=== PATIENT | female | born 1945 | race Caucasian/White ===

== ENCOUNTER 2018-05-20 12:17 | Outpatient (CLI) | payer MEDICARE ==
[~2018-05-20] VITALS: Ht 149.9 cm; Wt 54.5 kg
--- NOTE | ~2018-05-20 | HEMODYNAMI ---
PATIENT:KAPIL GUO MEDICAL RECORD: [id number] : 49 LOCATION:[facility] ADMISSION DATE: 05/20/18 Generatedon:05/20/201814:47 Patient name: KAPIL GUO Patient #: [id number] SSN: DO B: 1945 Date of study: 05/20/2018 Page: Of Hemodynamic Procedure Report Patient Data Patient Demographics Procedure consent was obtained First Name: KAPIL Gender: Female Last Name: BRANT : 1945 Middle Initial: FAWN Age: 72 year(s) Patient #: [id number] Race: Unknown Additional ID: [id number] Contact details Address: [facility] [address] [place] State: [place] City: [facility] Zip code: [address] Past Medical History Allergies Allergen Reaction Date Comments Reported Other allergy 05/20/2018 Sulfa Admission Admission Data Admission Date: 05/20/2018 Admission Time: 12:17 Height (in.): 20.08 BSA: 0.7 (m2) Height (cm.): 51 BMI: 223.22 (kg/m2) Weight (lbs.): 128 Weight (kg.): 58.06 Procedure Procedure Types Cath Procedure Diagnostic Procedure [facility] w/Coronaries Sedation Charges Moderate Sedation up to 15 minutes PCI Procedure Coronary Stent Coronary Stent Initial Procedure Description Procedure Date Procedure Date: 05/20/2018 Procedure Start Time: 13:47 Procedure End Time: 14:43 Procedure Staff Name Function Fredis Caceres MD Performing Physician Sangeeta Cavazos RT Monitor Ronel Shafer RN Nurse Rebecca Clayton RT Scrub Procedure Data Cath Procedure Fluoroscopy Diagnostic fluoroscopy Total fluoroscopy Time: time: 22.4 min 22.4 min Diagnostic fluoroscopy Total fluoroscopy dose: 872 dose: 872 mGy mGy Contrast Material Contrast Material Type Amount (ml) Isovue 300 158 Entry Location Entry Primary Successful Side Size Upsize Upsize Entry Closure Succes sful Closure Location (Fr) 1 (Fr) 2 (Fr) Remarks Device Remarks Femoral Right 6 Fr 6 Fr 6 Fr Exoseal artery Short Long Short Estimated blood loss: 5 ml Diagnostic catheters Device Type Used For End Catheter Placement Medtronic Dexterity 5Fr Right Coronary 3DRC catheter (NO COST Angiography SUPPLY) Procedure Complications No complications Procedure Medications Medication Administration Route Dosage Oxygen etCO2 Nasal cannula 2 l/min Lidocaine 2% added to field 20 Heparin Flush Bag added to field 2 bags (1000units/500ml NS) 0.9% NaCl I.V. 100 ml/hr Versed I.V. 1 mg Fentanyl I.V. 50 mcg Heparin Bolus I.V. 4000 units Versed I.V. 1 mg Fentanyl I.V. 50 mcg Heparin Bolus I.V. 3000 units Versed I.V. 1 mg Fentanyl I.V. 25 mcg Hemodynamics Rest BSA: 0.7 (m2) O2 Consumption: Estimated: 60.38 (ml/min) O2 Consumption indexed: Estimated:86.26 (ml/min/m) Heart Rate: 54 (bpm) Snapshots Pre Cath Intra NCS Post Cath Vital Signs Time Heart Resp SPO2 etCO2 NIBP (mmHg) Rhythm Pain Sedation Rate (ipm) (%) (mmHg) Status Level (bpm) 13:36:56 54 21 94 0 160/84(127) NSR 0 (11) 10(A) , No pain 13:41:18 58 14 99 21 127/79(99) NSR 0 (11) 10(A) , No pain 13:45:34 55 25 93 11.2 117/62(86) NSR 0 (11) 10(A) , No pain 13:49:46 52 13 93 21.8 113/61(89) NSR 0 (11) 9(A) , No pain 13:53:52 52 19 93 33.8 114/64(80) NSR 0 (11) 9(A) , No pain 13:58:02 52 13 94 30 120/65(79) NSR 0 (11) 9(A) , No pain 14:02:14 53 16 92 25.5 113/65(81) NSR 0 (11) 9(A) , No pain 14:06:22 52 18 92 30 121/69(91) NSR 0 (11) 9(A) , No pain 14:10:33 51 15 92 26.3 140/68(106) NSR 0 (11) 9(A) , No pain 14:14:49 53 23 93 27.8 127/68(99) NSR 0 (11) 9(A) , No pain 14:19:01 53 25 93 27.8 136/70(105) NSR 0 (11) 9(A) , No pain 14:23:15 54 30 94 27 144/74(98) NSR 0 (11) 9(A) , No pain 14:27:31 57 17 93 28.5 139/78(116) NSR 0 (11) 10(A) , No pain 14:31:45 56 14 93 25.5 146/79(116) NSR 0 (11) 9(A) , No pain 14:36:06 56 26 93 28.5 137/71(103) NSR 0 (11) 9(A) , No pain 14:40:22 57 17 93 27 135/73(110) NSR 0 (11) 10(A) , No pain Medications Time Medication Route Dose Verified Delivered Reason Notes Effectiveness by by 13:41:14 Oxygen etCO2 2 Fredis Buffie used for Nasal l/min St Jesus Shafer RN procedure cannula 13:41:21 Lidocaine 2% added 20ml Fredis Fredis for local to vial [facility] anesthetic field MD RESTREPO 13:41:29 Heparin Flush added 2 Fredis Fredis used for Bag to bags [facility] procedure (1000units/500ml field MD RESTREPO NS) 13:41:38 0.9% NaCl I.V. 100 Fredis Gamalie Per physician ml/hr St Jesus Shafer RN, MD 13:44:32 Versed I.V. 1 mg Fredis Buffie for sedation [facility] Jesus Shafer RN, MD 13:44:39 Fentanyl I.V. 50 Fredis Buffie for sedation mcg [facility] Jesus Shafer RN, MD 13:50:30 Heparin Bolus I.V. 4000 Fredis Buffie for verif ied units St Jesus Shafer RN anticoagulation with dr MD torres 13:57:18 Versed I.V. 1 mg Fredis Buffie for sedation St Jesus Shafer RN, MD 13:57:22 Fentanyl I.V. 50 Fredis Buffie for sedation mcg [facility] Jesus Shafer RN, MD 14:15:29 Heparin Bolus I.V. 3000 Fredis Buffie for verif ied units Morris Shafer RN anticoagulation with dr MD torres 14:25:22 Versed I.V. 1 mg Fredis Rodney for sedation St Jesus Shafer RN, MD 14:28:41 Fentanyl I.V. 25 Fredis Rodney for sedation mcg St Jesus Shafer RN, MD Procedure Log Time Note 13:23:50 Patient Height : 20.08 inches 13:23:59 Patient Weight : 128 lbs 13:24:19 Diagnostic Cath status Elective 13:24:21 Ronel Shafer RN sent for patient. Start room use. 13:24:23 Time tracking: Regular hours (M-F 7:00 - 5:00) 13:24:29 Plan of Care:Hemodynamics will remain stable., Cardiac rhythm will remain stable., Comfort level will be maintained., Respiratory function will remain adequate., Patient/ family verbilizes understanding of procedure., Procedure tolerated without complication., Recovers from procedure without complications.. 13:30:36 Patient received from Pre/Post Procedure Room to [facility] 3 Alert and oriented. Tansferred to table in Supine position. 13:30:37 Warm blankets applied, and wild hugger turned on for patient comfort. 13:30:38 Correct patient and procedure confirmed by team. 13:30:41 Signed procedure consent form obtained from patient. 13:30:42 ECG and BP/O2 sat monitors applied to patient. 13:35:47 Vital chart was started 13:35:50 Baseline sample Acquired. 13:35:54 Rhythm: sinus rhythm 13:36:02 Full Disclosure recording started 13:36:29 H&P Date Dictated: 05/14/2018 Within 30 days and on chart., H&P Addendum completed by physician on day of procedure. (MUST COMPLETE FOR ALL OUTPATIENTS). 13:36:30 Pre-procedure instructions explained to patient. 13:36:32 Family in waiting room. 13:36:34 Patient NPO since Midnight. 13:36:52 Patient allergic to Other allergySulfa 13:36:56 Was the patient premedicated? Yes 13:37:06 Is patient on blood thinner?Yes 13:41:14 Oxygen 2 l/min etCO2 Nasal cannula was administered by Ronel Shafer RN; used for procedure; 13:41:21 Lidocaine 2% 20ml vial added to field was administered by Fredis Caceres MD; for local anesthetic; 13:41:29 Heparin Flush Bag (1000units/500ml NS) 2 bags added to field was administered by Fredis Caceres MD; used for procedure; 13:41:38 0.9% NaCl 100 ml/hr I.V. was administered by Ronel Shafer RN; Per physician; 13:42:34 ACC The patient was administered the following blood thiners within the last 24 hours: ACCPlavix 13:42:45 Patient diabetic? Yes. 13:42:48 If diabetic: On Metformin? Yes 13:42:51 If on Metformin: Last Dose? 05/18/2018 13:42:55 Previous problem with sedation/anesthesia? No ? 13:42:57 Snore? Yes 13:43:00 Sleep apnea? No 13:43:01 Deviated septum? No 13:43:06 Opens mouth fully? Yes 13:43:07 Sticks out tongue? Yes 13:43:11 Airway obstruction? Yes copd 13:43:17 Dentures? Yes in tight 13:43:21 Pre procedure: right dorsailis pedis pulse 2+ Normal; easily identifiable; not easily obliterated 13:43:23 Pre procedure: left dorsailis pedis pulse 2+ Normal; easily identifiable; not easily obliterated 13:43:24 Patient pain scale 0/10 ?. 13:43:31 IV patent on arrival in left antecubital with 0.9% NaCl at [facility]. 13:43:33 Lab results completed and on chart. 13:43:37 Right groin area was prepped with chlora-prep and draped in sterile fashion 13:43:38 Alarms reviewed by R. N. 13:43:38 Sharps counted by scrub and verified by R.N. 13:43:41 Physician arrived 13:43:41 --------ALL STOP TIME OUT------ 13:43:42 Final Timeout: patient, procedure, and site verified with staff and physician. All members of the team are in agreement. 13:43:44 Right groin site verified by team. 13:43:46 Physical assessment completed. ASA score P 2 - A patient with mild systemic disease as per Fredis Caceres MD. 13:43:51 Sedation plan: IV Moderate Sedation Medication:Versed, Fentanyl 13:43:57 Use device set Femoral Dx 13:43:59 ACIST Syringe (64398) opened to sterile field. 13:43:59 Bag Decanter (2001S) opened to sterile field. 13:44:00 Medline Cath Pack ([id number]) opened to sterile field. 13:44:00 DIAGNOSTIC WIRE .035 260cm J wire (784232) opened to sterile field. 13:44:02 ACIST Hand Control (27299) opened to sterile field. 13:44:02 ACIST Manifold (26955) opened to sterile field. 13:44:04 Tegaderm 4 x 4 (1626W) opened to sterile field. 13:44:20 WHISPER 300cm guide wire ([id number]) opened to sterile field. 13:44:21 INFLATOR Merit BasixCompak (BV8782) opened to sterile field. 13:44:22 SHEATH 6FR [place] (OHX093) opened to sterile field. 13:44:32 Versed 1 mg I.V. was administered by Ronel Shafer RN; for sedation; 13:44:39 Fentanyl 50 mcg I.V. was administered by Ronel Shafer RN; for sedation; 13:46:17 Procedure started. 13:47:45 Local anesthetic to right femoral artery with Lidocaine 2% by Fredis Caceres MD.INITIAL ACCESS ONLY 13:47:54 A 6 Fr Short sheath was inserted into the Right Femoral artery 13:50:22 GUIDE 6FR JL 4.0 catheter (JE5QZ13) opened to sterile field. 13:50:30 Heparin Bolus 4000 units I.V. was administered by Ronel Shafer RN; for anticoagulation; verified with dr torres 13:51:54 A Signal Patternserity 5Fr 3DRC catheter (NO COST SUPPLY) was advanced over the wire and used for Right Coronary Angiography. 13:53:12 Baseline sample Acquired. 13:53:20 RCA angiography performed. 13:53:21 Catheter removed. 13:53:34 6 Fr jl4 guide catheter was inserted over the wire 13:55:25 GUIDE 6FR JL 5.0 catheter (XZ2NU10) opened to sterile field. 13:55:52 LCA angiography performed. 13:55:55 Injector settings: Ml/sec: 3, Volume: 6+, 13:56:02 whisper wire advanced. 13:56:43 Wire advanced across lesion. 13:57:18 Versed 1 mg I.V. was administered by Ronel Shafer RN; for sedation; 13:57:22 Fentanyl 50 mcg I.V. was administered by Ronel Shafer RN; for sedation; 14:03:12 The EMERGE OTW 2.5 x 12 balloon ([id number]) was advanced and then removed because of failure to cross lesion 14:03:16 Balloon removed over the wire. 14:03:16 Wire removed. 14:03:17 Guide catheter removed. 14:03:52 GUIDE 6FR EBU 4.0 guide catheter (MI4MUO55) opened to sterile field. 14:04:08 6 Fr ebu 4 guide catheter was inserted over the wire 14:05:20 Guide Catheter removed. unable to cannulate vessel. 14:06:31 GUIDE 6FR EBU 3.5 catheter (DQ9MSL17) opened to sterile field. 14:07:36 Guide catheter removed. 14:07:51 SHEATH 6FR Destination (RSR01) opened to sterile field. 14:09:16 Sheath upsized to a 6 Fr Long. 14:10:20 6 Fr ebu 3.5 guide catheter was inserted over the wire 14:15:29 Heparin Bolus 3000 units I.V. was administered by Ronel Shafer RN; for anticoagulation; verified with dr torres 14:16:26 Guide Catheter removed. unable to cannulate vessel. 14:16:42 GUIDE 6FR JL 3.5 guide catheter (EH9RS03) opened to sterile field. 14:16:51 6 Fr jl 3.5 guide catheter was inserted over the wire 14:20:41 Guide Catheter removed. unable to cannulate vessel. 14:21:00 6 Fr ebu 3.5 guide catheter was inserted over the wire 14:23:27 Guide Catheter removed. unable to cannulate vessel. 14:23:53 GUIDE 6FR AL 2.0 catheter (OL7CI64) opened to sterile field. 14:24:06 6 Fr al 2 guide catheter was inserted over the wire 14:25:22 Versed 1 mg I.V. was administered by Ronel Shafer RN; for sedation; 14:25:50 Guide Catheter removed. unable to cannulate vessel. 14:28:00 GUIDE 6FR Q 3.5 catheter ([id number]) opened to sterile field. 14:28:41 Fentanyl 25 mcg I.V. was administered by Ronel Shafer RN; for sedation; 14:29:33 whisper wire advanced. 14:31:59 Wire removed. 14:32:13 CHOICE PT Extra Support J 300cm guide wire ([id number]) opened to sterile field. 14:34:22 Inflate balloon Inflation number: 1 A EMERGE OTW 2.5 x 12 balloon ([id number]) was prepped and advanced across the Prox CX, then inflated to 14 BRODY for 0:30 (min:sec). 14:35:10 Inflation number: 2 The EMERGE OTW 2.5 x 12 balloon ([id number]) was reinflated across the Prox CX, to 14 BRODY for 0:30 (min:sec). 14:35:57 Balloon removed over the wire. 14:39:51 Place stent Inflation Number: 1 A ZAIDA OTW 3.0 x 18 stent ([id number]) was prepped and advanced across the Mid CX. The stent was deployed at 14 BRODY for 0:30 (min:sec). 14:41:21 Stent catheter was removed intact over wire. 14:41:22 Wire removed. 14:41:23 Guide catheter removed. 14:41:35 EXOSEAL 6Fr (EX600) opened to sterile field. 14:41:48 Sheath upsized to a 6 Fr Short. 14:42:02 Sheath removed intact; hemostasis achieved with Exoseal to the Right Femoral artery. 14:42:04 Procedure ended.(Physican Out) 14:42:16 Fluoroscopy time 22.40 minutes. 14:42:26 Flurop Dose total: 872 14:42:26 Fluoroscopy dose: 872 mGy 14:42:33 Contrast amount:Isovue 300 158ml. 14:42:35 Sharps counted by scrub and verified by R.N. 14:42:36 Insertion/operative site no bleeding no hematoma. 14:42:40 Post-op/insertion site Right Femoral artery dressed using a 4 x 4 and Tegaderm. 14:42:43 Post right femoral artery:stable 14:42:45 Post Procedure Pulses reassessed and unchanged 14:42:47 Post procedure rhythm: unchanged. 14:42:50 Estimated blood loss: 5 ml 14:42:52 Post procedure instruction explained to patient.Patient verbalizes understanding. 14:42:52 Patient needs reinforcement of post procedure teaching. 14:43:07 Procedure type changed to Cath procedure, Diagnostic procedure, LHC, LHC w/Coronaries, Sedation Charges, Moderate Sedation up to 15 minutes, PCI procedure, Coronary Stent, Coronary Stent Initial 14:43:08 Procedure and supply charges have been captured, reviewed, submitted and are correct. 14:43:12 Procedure Complication : No complications 14:43:14 Vital chart was stopped 14:43:15 See physician's report for complete and final results. 14:43:17 Report given to Pre/Post Procedure Room. 14:43:20 Patient transfered to Pre/Post Procedure Room with Stretcher. 14:43:21 Procedure ended. 14:43:21 Full Disclosure recording stopped 14:43:28 ACC-PCI Only Patient was given prescriptions, or instructed by Fredis Caceres MD to start/continue the following medications upon discharge: Plavix 14:43:30 End room use (Document Last) Intervention Summary Intervention Notes Time ActionType Lesion and Equipment Action# Pressure Duration Attributes Used 14:03:12 Discard EMERGE OTW Balloon 2.5 x 12 balloon ([id number]) 14:34:22 Inflate Prox CX EMERGE OTW 1 14 00:30 balloon 2.5 x 12 balloon ([id number]) 14:35:10 Reinflate Prox CX EMERGE OTW 2 14 00:30 balloon 2.5 x 12 balloon ([id number]) 14:39:51 Place stent Mid CX ZAIDA OTW 3.0 1 14 00:30 x 18 stent ([id number]) Device Usage Item Name Manufacture Quantity Catalog Number Hospital Part Current M inimal Lot# / Charge Number Stock Stock Serial# Code ACIST Syringe Acist 1 17629 715625 368187 555798 2 0 (12466) Medical Systems Inc Bag Decanter Microtek 1 517123 61594 744139 5 () Medical Inc. Medline Cath Medline 1 [id number] 328461 69041 929287 5 Pack ([id number]) DIAGNOSTIC [facility] [place] 1 205358 895548 812125 705758 3 0 WIRE .035 260cm J wire (240087) ACIST Hand Acist 1 95953 923210 930141 440570 5 Control Medical (92578) Systems Inc ACIST Acist 1 90778 678518 038445 091184 5 [facility] Medical (66455) Systems Inc Tegaderm 4 x 3M 1 1626W 037315 534606 481935 5 4 (1626W) WHISPER 300cm Harrington 1 [id number] 021451 059397 550844 5 guide wire Vascular (8220277IH) INFLATOR Bio-Tree Systems 1 AK2030 680926 021772 195605 1 5 Sandbox BasixCompak (RY6009) SHEATH 6FR Terumo 1 ZDB566 925141 615051 170455 4 0 [place] (TJB748) GUIDE 6FR JL Medtronic 1 SH9WG69 009196 21788 759502 1 4.0 catheter (DC4ZE33) Medtronic Medtronic 1 GAE73STQ 490525 300311 5 Dexterity 5Fr 3DRC catheter (NO COST SUPPLY) GUIDE 6FR JL Medtronic 1 CO5XN49 160230 82359 962227 1 5.0 catheter (PY2TW08) EMERGE OTW [place] 1 [id number] 855190 316543 718210 5 [id number] 2.5 x 12 Scientific balloon ([id number]) GUIDE 6FR EBU Medtronic 1 ZT1MHB79 957625 57532 816236 1 4.0 guide catheter (DY0TAF17) GUIDE 6FR EBU Medtronic 1 QX7ICQ25 237094 34404 132265 3 3.5 catheter (YM9YEL61) SHEATH 6FR Terumo 1 RSR01 474160 81305 607226 5 Destination (RSR01) GUIDE 6FR JL Medtronic 1 CG8LN44 066919 29036 870013 1 3.5 guide catheter (IZ7RP86) GUIDE 6FR AL Medtronic 1 AW8QD66 904079 76577 276700 1 2.0 catheter (BR3BA06) GUIDE 6FR Q [place] 1 [id number] 286963 797896 4312152 1 3.5 catheter Scientific (598949830) CHOICE PT [place] 1 [id number] 351177 035015 040058 5 Extra Support Scientific J 300cm guide wire (3553638O1) ZAIDA OTW 3.0 Medtronic 1 [id number] 408441 2987853 503691 5 [id number] x 18 stent ([id number]) EXOSEAL 6Fr Cardinal 1 EX600 282201 567755 180125 1 0 (EX600) Health Signature Audit Allen Stage Time Signature Unsigned Intra-Procedure 05/20/2018 Sangeeta Cavazos 2:47:41 PM RT(R) Signatures Monitor : Sangeeta Cavazos RT Signature : Date : Time : [place] [id number] [place] [address]
--- NOTE | ~2018-05-20 | OP ---
PATIENT NAME: KAPIL GUO MEDICAL RECORD: [id number] :49 LOCATION:D.CAT ADMISSION DATE: SURGEON: RUSSELL SCANLON MD DATE OF OPERATION: 05/20/2018 PROCEDURE: Left heart catheterization and selective coronary angiography, stent to circumflex, right femoral artery approach. CATHETERS: A 5-Libyan sheath, no pigtail. The procedure was well tolerated. The patient was returned to díaz. Sheath was removed and then Exoseal device was placed. Left ventriculography was not performed. CORONARY ANATOMY: LEFT MAIN: Left main is free of disease. LAD: LAD is free of disease. CIRCUMFLEX: Circumflex has previously described 80% to 90% stenosis in its midportion. RIGHT CORONARY: Previously placed stents show perhaps 30% restenosis, nothing flow restrictive. IMPRESSION AND PLAN: Intervention to circumflex momentarily. DESCRIPTION OF PROCEDURE: The 5-Libyan sheath was eventually changed for a long 6-Libyan sheath due to tortuosity of descending aorta and iliac system. We were finally able to place a Q-catheter into the left coronary ostium. This was followed by 300-cm Whisper wire which was placed across the tightly occluded circumflex down this portion of the vessel. We were able to place a 2.0 balloon distal to this stenosis itself, using the balloon as the exchange catheter, placed a PT extra support wire. Next, the balloon was inflated up to 14 atmospheres for pre-deployment. Finally, we were able to place a 3.0 x 18-mm Ulysses drug-eluting stent up to 14 atmospheres. This showed excellent resolution of 90% stenosis, no significant residual. MIRTA flow was 3 throughout the procedure. The patient was previously on Plavix. Heparin was used in the lab. Sheath was closed with Exoseal device. TRANSINT:[id number] Voice Confirmation ID: [id number] DOCUMENT ID: [id number] RUSSELL SCANLON MD at 1418 CC: [id number] DICTATION DATE: 05/20/18 1458 MEDICAL RECORD TECHNICIAN: 05/20/18 1654 DEP CLI 05/20/18 [place] [address]
[~2018-05-20 12:17] MED LIST: KEFLEX500 MG PO; LIDOCAINE 2% SM; METOPROLOL TART50 MG PO; MOTRIN600 MG PO; MULTI-DAY VITAM1 TAB PO; NICODERM C1 PATCH .1; NICODERM C1 PATCH .1 TD; NORVASC5 MG PO; PERCOCET 10/3251 TA1 PO; PHENERGAN25 M1 PO; PRAVACHOL40 MG PO; PRILOSEC20 MG PO; PRINZIDE 20/12.1 TAB PO; PROAIR HFA8.5 GM INH; PROTEIN LIQUID; PROVENTIL/2.5 MG/3 M INH; PROZAC20 MG PO; TOPROL XL50 MG PO; [UNRECOGNIZED DRUG - OTHER] SM
[2018-05-20] MEDS ORDERED: GLUCOPHAGE850 MG PO (12:37)
[2018-05-20] MEDS ORDERED: BAYER CHEWABLE81 MG PO (12:38)
[2018-05-20] MEDS ORDERED: BUSPAR5 MG PO (12:38)
[2018-05-20] MEDS ORDERED: PLAVIX75 MG PO (12:39)
[2018-05-20] MEDS ORDERED: LEXAPRO10 MG PO (12:39)
[2018-05-20] MEDS ORDERED: FEXOFENADINE H180 MG PO (12:40)
[2018-05-20] MEDS ORDERED: HYDRALAZINE HCL25 MG PO (12:40)
[2018-05-20 13:07] VITALS: BP 151/67; Ht 149.9 cm; Wt 54.5 kg
[2018-05-20 13:07] LABS: BASOPHILS 1.7 % (0-2); EOSINOPHILS 2.7 % (0-7); HEMATOCRIT 41.4 % (36.0-48.0); HEMOGLOBIN 13.8 g/dL (12-16); IMMATURE GRANULOCYTES 0.4 % (0-5); LYMPHOCYTES 26.1 % (15-50); MCH 30.3 pg (26.0-34.0); MCHC 33.3 g/dL (31.0-37.0); MEAN PLATELET VOLUME 9.6 fL (7.4-10.4); MONOCYTES 7.3 % (2-11); NEUTROPHILS 61.8 % (40-80); PLATELET COUNT 397 10x3/uL (130-400); RBC 4.55 10x6/uL (4.00-5.40); RDW 13.6 % (11.5-14.5); WBC 8.3 10x3/uL (4.8-10.8)
[2018-05-20 13:16] LABS: ANION GAP 15.5 mmol/L (8-16); CALCIUM 9.4 mg/dL (8.5-10.1); CARBON DIOXIDE 25.1 mmol/L (21.0-32.0); CREATININE - SERUM 1.1 mg/dL (0.6-1.3); POTASSIUM - SERUM 4.6 mmol/L (3.5-5.1)
== END 2018-05-20 19:15 | disposition home or self-care (01) ==
LOC: D.CATH 12:17
PROVIDERS: Internal Medicine Interventional Cardiology
DX: I25.110 Atherosclerotic heart disease of native coronary artery with unstable angina pectoris (principal)
CPT/HCPCS: C9600; 93458

== ENCOUNTER 2018-06-14 18:19 | Emergency (ER) | payer MEDICARE ==
[~2018-06-14] VITALS: Ht 149.9 cm; Wt 55.5 kg
[~2018-06-14 18:19] MED LIST changes: +BAYER CHEWABLE81 MG PO; +BUSPAR5 MG PO; +FEXOFENADINE H180 MG PO; +GLUCOPHAGE850 MG PO; +HYDRALAZINE HCL25 MG PO; +LEXAPRO10 MG PO; +PLAVIX75 MG PO
[2018-06-14 18:23] VITALS: Ht 149.9 cm; Wt 55.5 kg
[2018-06-14] MEDS ORDERED: ULTRAM50 MG PO (18:26)
[2018-06-14] MEDS ORDERED: HYDROCODON-ACE1 EAC7 PO (18:26)
[2018-06-14] MEDS ORDERED: PEPCID AC20 MG PO (18:26)
[2018-06-14 19:02] LABS: APPEARANCE CLEAR (CLEAR); BILIRUBIN NEGATIVE (NEGATIVE); COLOR YELLOW (YELLOW); EPITHELIAL CELLS 0-5 /hpf (0-5); GLUCOSE NEGATIVE (NEGATIVE); KETONE NEGATIVE (NEGATIVE); NITRITE NEGATIVE (NEGATIVE); PROTEIN 3+ mg/dL (NEGATIVE); RED CELLS - URINE RARE /hpf (0-5); UROBILINOGEN NORMAL (NORMAL); WHITE CELLS - URINE NSEEN /hpf (0-5)
[2018-06-14 19:04] LABS: BASOPHILS 0.7 % (0-2); EOSINOPHILS 5.8 % (0-7); HEMATOCRIT 34.4 % (36.0-48.0); HEMOGLOBIN 11.2 g/dL (12-16); IMMATURE GRANULOCYTES 0.2 % (0-5); LYMPHOCYTES 15.5 % (15-50); MCH 29.4 pg (26.0-34.0); MCHC 32.6 g/dL (31.0-37.0); MCV 90.3 fL (80.0-100.0); MEAN PLATELET VOLUME 9.6 fL (7.4-10.4); MONOCYTES 9.8 % (2-11); PLATELET COUNT 419 10x3/uL (130-400); RBC 3.81 10x6/uL (4.00-5.40); RDW 13.6 % (11.5-14.5); WBC 12.3 10x3/uL (4.8-10.8)
[2018-06-14 19:10] LABS: ANION GAP 14.2 mmol/L (8-16); BILIRUBIN - TOTAL 0.16 mg/dL (0.2-1.3); CALCIUM 8.8 mg/dL (8.5-10.1); CARBON DIOXIDE 24.7 mmol/L (21.0-32.0); CREATININE - SERUM 1.8 mg/dL (0.6-1.3); POTASSIUM - SERUM 3.9 mmol/L (3.5-5.1); PROTEIN - SERUM 7.6 g/dL (6.4-8.2)
[2018-06-14 19:12] LABS: TROPONIN-I 0.038 ng/mL (0.000-0.060)
[2018-06-14] MEDS ORDERED: CARAFATE1 G PO (20:55)
[2018-06-14] MEDS ORDERED: MIRALAX17 GM PO (20:59)
[2018-06-14 21:11] VITALS: BP 143/74
== END 2018-06-14 21:10 | disposition home or self-care (01) ==
LOC: D.ER 18:19
PROVIDERS: Emergency Medicine
DX: K21.9 Gastro-esophageal reflux disease without esophagitis (principal); I71.4 Abdominal aortic aneurysm, without rupture; K59.00 Constipation, unspecified; Z86.39 Personal history of other endocrine, nutritional and metabolic disease; Z86.73 Personal history of transient ischemic attack (TIA), and cerebral infarction without residual deficits; E11.9 Type 2 diabetes mellitus without complications; I10 Essential (primary) hypertension; J44.9 Chronic obstructive pulmonary disease, unspecified; F17.200 Nicotine dependence, unspecified, uncomplicated

== ENCOUNTER 2018-06-18 19:41 | Observation (INO) | payer MEDICARE ==
[~2018-06-18] VITALS: Ht 149.9 cm; Wt 56.1 kg
--- NOTE | ~2018-06-18 | HEMODYNAMI ---
PATIENT:KAPIL GUO MEDICAL RECORD: [id number] : 49 LOCATION:[facility]04 ADMISSION DATE: 06/18/18 Generatedon:06/19/201816:40 Patient name: KAPIL GUO Patient #: [id number] SSN: DO B: 1945 Date of study: 06/19/2018 Page: Of Hemodynamic Procedure Report Patient Data Patient Demographics Procedure consent was obtained First Name: KAPIL Gender: Female Last Name: BRANT : 1945 [facility] Initial: FAWN Age: 72 year(s) Patient #: [id number] Race: Unknown Additional ID: [id number] Contact details Address: [address] State: [place] Zip code: [address] Past Medical History Allergies Allergen Reaction Date Comments Reported Other allergy 05/20/2018 Sulfa Admission Admission Data Admission Date: 06/18/2018 Admission Time: 22:10 Admit Source: Other Room #: D.CL04 Procedure Procedure Types Cath Procedure Diagnostic Procedure C [facility] w/Coronaries Sedation Charges Moderate Sedation up to 15 minutes Procedure Description Procedure Date Procedure Date: 06/19/2018 Procedure Start Time: 16:01 Procedure End Time: 16:40 Procedure Staff Name Function Fredis Caceres MD Performing Physician Kirstin Aggarwal RT Scrub Carolina Friedman RN Nurse Guilherme Wills RN Mathematics Education Professor Tereza Starkey RT Monitor Procedure Data Cath Procedure Fluoroscopy Diagnostic fluoroscopy Total fluoroscopy Time: 8.2 time: 8.2 min min Diagnostic fluoroscopy Total fluoroscopy dose: 639 dose: 639 mGy mGy Contrast Material Contrast Material Type Amount (ml) Isovue 300 84 Entry Location Entry Primary Successful Side Size Upsize Upsize Entry Closure Succes sful Closure Location (Fr) 1 (Fr) 2 (Fr) Remarks Device Remarks Femoral Right 5 Fr Exoseal artery Estimated blood loss: 10 ml Diagnostic catheters Device Type Used For End Catheter Placement MULTIPACK JL 4.0 5Fr Left Coronary catheter Angiography MULTIPACK Pigtail 5 Fr Procedure catheter MULTIPACK 3DRC 5Fr Right Coronary catheter Angiography DIAGNOSTIC IM 5Fr Procedure catheter ([id number]) MULTIPACK Pigtail 5 Fr Ascending catheter aortogram MULTIPACK 3DRC 5Fr Right Coronary catheter Angiography Procedure Complications No complications Procedure Medications Medication Administration Route Dosage 0.9% NaCl I.V. 100 ml/hr Oxygen etCO2 Nasal cannula 2 l/min Lidocaine 2% added to field 20 Heparin Flush Bag added to field 2 bags (1000units/500ml NS) Plavix P.O. 300 mg Versed I.V. 2 mg Fentanyl I.V. 50 mcg Fentanyl I.V. 50 mcg Hemodynamics Rest Heart Rate: 64 (bpm) Snapshots Pre Cath Intra NCS Post Cath Vital Signs Time Heart Resp SPO2 etCO2 NIBP (mmHg) Rhythm Pain Sedation Rate (ipm) (%) (mmHg) Status Level (bpm) 15:51:48 72 16 98 33.5 178/93(149) NSR 0 (11) 10(A) , No pain 15:56:06 76 14 96 26 154/84(112) NSR 0 (11) 10(A) , No pain 16:00:22 77 12 95 28.2 148/89(118) NSR 0 (11) 10(A) , No pain 16:04:38 76 10 96 23.1 148/82(130) NSR 0 (11) 9(A) , No pain 16:08:54 80 12 98 29 135/79(113) NSR 0 (11) 9(A) , No pain 16:13:06 81 12 97 26 149/77(116) NSR 0 (11) 9(A) , No pain 16:17:18 81 13 95 28.3 157/90(131) NSR 0 (11) 9(A) , No pain 16:21:28 82 12 95 30.5 158/91(130) NSR 0 (11) 9(A) , No pain 16:25:40 81 12 95 30.5 163/86(132) NSR 0 (11) 10(A) , No pain 16:29:39 80 13 95 20.1 167/100(140) NSR 0 (11) 10(A) , No pain 16:33:57 80 14 94 34.2 181/101(142) NSR 0 (11) 10(A) , No pain 16:38:19 80 13 93 20.1 187/106(160) NSR 0 (11) 10(A) , No pain Medications Time Medication Route Dose Verified Delivered Reason Notes E ffectiveness by by 15:35:53 0.9% NaCl I.V. 100 Fredis Carolina used for ml/hr [facility] Friedman procedure MD SONG 15:36:00 Oxygen etCO2 2 Fredis Carolina used for Nasal l/min Morris Elder procedure cannula MD SONG 15:36:05 Lidocaine 2% added 20ml Fredis Mcneal for local to vial [facility] anesthetic field MD RESTREPO 15:36:09 Heparin Flush added 2 Fredis Fredis used for Bag to bags [facility] procedure (1000units/500ml field MD RESTREPO NS) 15:53:54 Plavix P.O. 300 Fredis Figueroa for mg [facility] Friedman antiplatelet MD SONG therapy 15:56:38 Versed I.V. 2 mg Fredis Helmyla for sedation [facility] Jesus Friedman MD, RN 15:56:45 Fentanyl I.V. 50 Fredis Carolina for sedation mcg [facility] Jesus Friedman MD, RN 16:01:34 Fentanyl I.V. 50 Fredis Helmyla for sedation mcg [facility] Jesus Friedman MD, RN Procedure Log Time Note 15:33:14 Informed consent obtained and on chart 15:33:17 Admit Source: Other 15:33:41 Diagnostic Cath status Elective 15:33:44 Guilherme Wills RN sent for patient. Start room use. 15:35:06 Time tracking: Regular hours (M-F 7:00 - 5:00) 15:35:09 Plan of Care:Hemodynamics will remain stable., Cardiac rhythm will remain stable., Comfort level will be maintained., Respiratory function will remain adequate., Patient/ family verbilizes understanding of procedure., Procedure tolerated without complication., Recovers from procedure without complications.. 15:35:16 H&P Date Dictated: 06/19/2018 Within 30 days and on chart.. 15:35:53 0.9% NaCl 100 ml/hr I.V. was administered by Carolina Friedman RN; used for procedure; 15:36:00 Oxygen 2 l/min etCO2 Nasal cannula was administered by Carolina Friedman RN; used for procedure; 15:36:05 Lidocaine 2% 20ml vial added to field was administered by Fredis Caceres MD; for local anesthetic; 15:36:09 Heparin Flush Bag (1000units/500ml NS) 2 bags added to field was administered by Fredis Caceres MD; used for procedure; 15:45:52 Patient received from ED to CCL 1 Alert and oriented. Tansferred to table in Supine position. 15:45:53 Warm blankets applied, and wild hugger turned on for patient comfort. 15:45:53 Correct patient and procedure confirmed by team. 15:45:54 ECG and BP/O2 sat monitors applied to patient. 15:45:55 Pre-procedure instructions explained to patient. 15:45:56 Pre-op teaching completed and patient verbalized understanding. 15:45:57 Family in waiting room. 15:45:58 Patient NPO since Midnight. 15:50:36 Vital chart was started 15:50:40 Rhythm: sinus rhythm 15:50:41 Full Disclosure recording started 15:51:27 Is the patient allergic to Iodine/contrast media? No. 15:51:30 Is patient on blood thinner?Yes 15:51:32 ACC The patient was administered the following blood thiners within the last 24 hours: ACCPlavix 15:51:36 Patient diabetic? Yes. 15:51:37 If diabetic: On Metformin? Yes 15:51:38 If on Metformin: Last Dose? 06/18/2018 15:51:41 Previous problem with sedation/anesthesia? No ? 15:51:42 Snore? Yes 15:51:44 Sleep apnea? No 15:51:45 Deviated septum? No 15:51:45 Opens mouth fully? Yes 15:51:46 Sticks out tongue? Yes 15:51:49 Airway obstruction? No ? 15:51:53 Dentures? No ? 15:51:57 Pre procedure: right dorsailis pedis pulse 1+ Palpable, but thready & weak; easily obliterated 15:52:29 Unable to go radial due to pt's height. 15:52:34 Patient pain scale 0/10 ?. 15:52:40 IV patent on arrival in left forearm with 0.9% NaCl at O. 15:52:43 Lab results completed and on chart. 15:52:46 Right groin area was prepped with chlora-prep and draped in sterile fashion 15:52:47 Alarms reviewed by R. N. 15:52:47 Sharps counted by scrub and verified by R.N. 15:52:55 Use device set Femoral Dx 15:52:56 Tegaderm 4 x 4 (1626W) opened to sterile field. 15:52:57 ACIST Hand Control (77082) opened to sterile field. 15:52:57 ACIST Manifold (72456) opened to sterile field. 15:52:59 ACIST Syringe (08247) opened to sterile field. 15:52:59 Bag Decanter (2002S) opened to sterile field. 15:53:00 Medline Cath Pack ([id number]) opened to sterile field. 15:53:02 DIAGNOSTIC WIRE .035 260cm J wire (166128) opened to sterile field. 15:53:03 DIAGNOSTIC Multipack 5Fr catheter set (XY3751) opened to sterile field. 15:53:06 SHEATH 5FR [place] (NZP499) opened to sterile field. 15:53:54 Plavix 300 mg P.O. was administered by Carolina Friedman RN; for antiplatelet therapy; 15:55:55 --------ALL STOP TIME OUT------ 15:55:55 Final Timeout: patient, procedure, and site verified with staff and physician. All members of the team are in agreement. 15:55:58 Right groin site verified by team. 15:56:00 Physical assessment completed. ASA score P 2 - A patient with mild systemic disease as per Fredis Caceres MD. 15:56:04 Sedation plan: IV Moderate Sedation Medication:Versed, Fentanyl 15:56:38 Versed 2 mg I.V. was administered by Carolina Friedman RN; for sedation; 15:56:45 Fentanyl 50 mcg I.V. was administered by Carolina Friedman RN; for sedation; 15:57:09 Baseline sample Acquired. 15:57:22 Zero performed for pressure channel P1 16:01:34 Fentanyl 50 mcg I.V. was administered by Carolina Friedman RN; for sedation; 16:01:46 Zero performed for pressure channel P1 16:01:50 Procedure started. 16:01:56 Local anesthetic to right femoral artery with Lidocaine 2% by Fredis Caceres MD.INITIAL ACCESS ONLY 16:02:28 A 5 Fr sheath was inserted into the Right Femoral artery 16:02:56 A MULTIPACK JL 4.0 5Fr catheter was advanced over the wire and used for Left Coronary Angiography. 16:04:40 Catheter removed. 16:06:56 A MULTIPACK Pigtail 5 Fr catheter was advanced over the wire and used for Procedure. for Thoracic aortagram 16:12:35 Catheter removed. 16:14:49 A MULTIPACK Pigtail 5 Fr catheter was advanced over the wire and used for Right Coronary Angiography. removed, unable to advance 16:15:02 glide wire advanced. 16:17:20 A DIAGNOSTIC IM 5Fr catheter ([id number]) was advanced over the wire and used for Procedure. 16:18:02 A MULTIPACK Pigtail 5 Fr catheter was advanced over the wire and used for Ascending aortogram. 16:22:53 Catheter removed. 16:24:34 A MULTIPACK 3DRC 5Fr catheter was advanced over the wire and used for Right Coronary Angiography. 16:25:26 Catheter removed. 16:25:48 Sheath removed intact; hemostasis achieved with Exoseal to the Right Femoral artery. 16:25:49 Procedure ended.(Physican Out) 16::58 Fluoroscopy time 08.20 minutes. 16:26:02 Flurop Dose total: 639 16:26:02 Fluoroscopy dose: 639 mGy 16:26:05 Contrast amount:Isovue 300 84ml. 16:26:06 Sharps counted by scrub and verified by R.N. 16:26:08 Insertion/operative site no bleeding no hematoma. 16:26:20 Post right femoral artery:stable, clean and dry 16:26:24 Post-op/insertion site Right Femoral artery dressed using a 4 x 4 and Tegaderm. 16:26:28 Post Procedure Pulses reassessed and unchanged 16:26:32 Post-procedure physical assessment completed. ASA score P 2 - A patient with mild systemic disease as per Fredis Caceres MD. 16:26:34 Post procedure rhythm: unchanged. 16:26:36 Estimated blood loss: 10 ml 16:26:37 Post procedure instruction explained to patient.Patient verbalizes understanding. 16:26:38 Patient needs reinforcement of post procedure teaching. 16:26:58 Procedure type changed to Cath procedure, Diagnostic procedure, LHC, LHC w/Coronaries, Sedation Charges, Moderate Sedation up to 15 minutes 16:27:03 Procedure Complication : No complications 16:27:06 See physician's report for complete and final results. 16:27:14 EXOSEAL 5Fr (EX500) opened to sterile field. 16:28:18 Procedure and supply charges have been captured, reviewed, submitted and are correct. 16:28:37 Vital chart was started 16:40:00 Report given to [facility]. 16:40:04 Patient transfered to [facility] with Bed. 16:40:10 Procedure ended. 16:40:10 Full Disclosure recording stopped 16:40:13 End room use (Document Last) 16:40:13 End room use (Document Last) 16:40:44 Vital chart was stopped Device Usage Item Name Manufacture Quantity Catalog Hospital Part Current Minimal L ot# / Number Charge Number Stock Stock Serial# Code Tegaderm 4 3M 1 1626W 196371 905392 321548 5 x 4 (1626W) ACIST Hand Acist 1 93277 188400 438295 271324 5 Control Medical (01775) Systems Inc ACIST Acist 1 63071 294461 534704 382878 5 Manifold Medical (36741) Systems Inc ACIST Acist 1 01833 524253 814375 587240 20 Syringe Medical (34684) Systems Inc Bag Microtek 1 2001S 016169 47733 192549 5 Decanter Medical Inc. () Medline Medline 1 [id number] 855529 21056 174857 5 Cath Pack ([id number]) DIAGNOSTIC St Hen[facility] 1 818578 318470 020441 323373 30 WIRE .035 260cm J wire (616043) DIAGNOSTIC Cardinal 1 KJ6875 400429 62160 777878 30 Multipack Health 5Fr catheter set (NU0078) SHEATH 5FR Terumo 1 HLX313 003057 507186 863188 40 [place] (LHA982) MULTIPACK Cardinal 1 712246 5 JL 4.0 5Fr Health catheter MULTIPACK Cardinal 2 184236 5 Pigtail 5 Health Fr catheter MULTIPACK Cardinal 2 696593 5 3DRC 5Fr Health catheter DIAGNOSTIC Cardinal 1 [id number] 737212 439402 031767 5 IM 5Fr Health catheter (341631U) EXOSEAL 5Fr Cardinal 1 EX500 727912 068339 129809 10 (EX500) Health Signature Audit [place] Time Signature Unsigned Intra-Procedure 06/19/2018 Kirstin Aggarwal 4:40:42 PM RT(R) Signatures Monitor : Tereza Signature : Counts RT Date : Time : [address] [place] [address]
--- NOTE | ~2018-06-18 | MORECARE ---
CASE MANAGEMENT DISCHARGE SUMMARY PATIENT: KAPIL GUO UNIT: [id number] ADM DATE: 06/18/18 AGE: 72 : [birth year] SEX: F ROOM/BED: D.2116 AUTHOR: JOSEFINA MONTALVO PHYSICIAN: REFERRING PHYSICIAN: RUSSELL SCANLON MD DATE OF SERVICE: 06/21/18 Discharge Plan Patient Name: KAPIL GUO Facility: [facility]:[place] : 1945 Planned Disposition: Home Anticipated Discharge Date: 06/20/18 Discharge Date: 06/20/2018 Expected LOS: 2 Initial Reviewer: [email or web address] Initial Review Date: 06/21/2018 Generated: 06/21/18 9:33 am Patient Name: KAPIL GUO Page [id number] at 0833 All edits/amendments must be made on the electronic document DICTATION DATE: 06/21/18 08 HELP DESK REP: MARY ELLEN 06/21/18 08 RPT#: [id number] DC DATE:06/20/18 STATUS: DIS IN [facility] [address] [place] [address] END OF REPORT
--- NOTE | ~2018-06-18 | OP ---
PATIENT NAME: KAPIL GUO MEDICAL RECORD: [id number] :[birth year] LOCATION:D.M2 D.2116 ADMISSION DATE:06/18/18 SURGEON: RUSSELL SCANLON MD DATE OF OPERATION: 06/19/2018 PROCEDURE: Left heart catheterization, selective coronary angiography, right femoral artery approach. CATHETERS: A 5-Malay sheath, 5/4 left and right Lolita, 5/4 pig. The procedure was well tolerated. The patient was put in observation after the procedure was finished. FINDINGS: Left ventriculography not performed. CORONARY ANATOMY: LEFT MAIN: Left main is free of disease. LAD: Free of diagnosis in diagonal system. CIRCUMFLEX: Area of previous stenting is widely patent. No progression of disease. RIGHT CORONARY ARTERY: Previously placed stents are widely patent. There is some distal disease in the PDA of about 70%. No evidence of restenosis. However, multiple views were taken with aortic root injection. This shows a large thoracic aneurysm, a significant stenosis of the right innominate and some deviation of the trachea. IMPRESSION: We will plan for CTA to further delineate anatomy. This will need to be repaired at some point. Further recommendations based on the above. TRANSINT:[id number] Voice Confirmation ID: [id number] DOCUMENT ID: [id number] 06/25/2018 Edited to correct date of service, dmm. RUSSELL SCANLON MD at 1310 CC: [id number] DICTATION DATE: 06/19/18 1643 SPLUNK ARCHITECT: 06/19/18 2335 DIS IN 06/20/18 [address] [place] [address]
[~2018-06-18 19:41] MED LIST changes: +CARAFATE1 G PO; +HYDROCODON-ACE1 EAC7 PO; +MIRALAX17 GM PO; +PEPCID AC20 MG PO; +ULTRAM50 MG PO
[2018-06-18 21:00] VITALS: BP 128/96
[2018-06-18 21:03] LABS: BASOPHILS 0.7 % (0-2); EOSINOPHILS 9.7 % (0-7); HEMATOCRIT 30.8 % (36.0-48.0); HEMOGLOBIN 10.2 g/dL (12-16); IMMATURE GRANULOCYTES 0.2 % (0-5); MCH 29.1 pg (26.0-34.0); MCHC 33.1 g/dL (31.0-37.0); MCV 87.7 fL (80.0-100.0); MEAN PLATELET VOLUME 9.3 fL (7.4-10.4); MONOCYTES 8.4 % (2-11); PLATELET COUNT 488 10x3/uL (130-400); RBC 3.51 10x6/uL (4.00-5.40); RDW 13.3 % (11.5-14.5); WBC 8.4 10x3/uL (4.8-10.8)
[2018-06-18 21:22] LABS: INR 1.07 (0.85-1.17); PROTIME 13.4 SECONDS (11.6-15.0)
[2018-06-18 21:23] LABS: APTT 44.4 SECONDS (22.8-39.4)
[2018-06-18 21:29] LABS: ALBUMIN 3.1 g/dL (3.4-5.0); ALKALINE PHOSPHATASE 127 U/L (46-116); ALT (SGPT) 26 U/L (10-68); BILIRUBIN - TOTAL 0.25 mg/dL (0.2-1.3); CALC OSMOLALITY 272 mosm/kg (275-300); CALCIUM 9.2 mg/dL (8.5-10.1); CARBON DIOXIDE 23.8 mmol/L (21.0-32.0); CHLORIDE - SERUM 99 mmol/L (98-107); GLUCOSE 90 mg/dL (74-106); POTASSIUM - SERUM 3.3 mmol/L (3.5-5.1); PROTEIN - SERUM 7.8 g/dL (6.4-8.2); SODIUM 134 mmol/L (136-145); UREA NITROGEN 26 mg/dL (7-18); eGFR NON AFRICAN AMERICAN 26 mL/min (90-120)
[2018-06-18 21:46] LABS: CKMB 1.9 U/L (0.0-3.6); CREATINE KINASE 52 UL (21-215); MAGNESIUM - SERUM 1.7 mg/dL (1.8-2.4)
[2018-06-18 21:48] LABS: TROPONIN-I 0.084 ng/mL (0.000-0.060)
[2018-06-18 22:00] VITALS: BP 140/100
[2018-06-19] VITALS (16 sets, daily range): BP systolic 127–180; BP diastolic 66–112; Ht 149.9 cm; Wt 56.1 kg
[2018-06-19 02:51] LABS: EOSINOPHILS 9.1 % (0-7); HEMATOCRIT 31.6 % (36.0-48.0); HEMOGLOBIN 10.5 g/dL (12-16); IMMATURE GRANULOCYTES 0.3 % (0-5); LYMPHOCYTES 22.8 % (15-50); MCH 29.5 pg (26.0-34.0); MCHC 33.2 g/dL (31.0-37.0); MCV 88.8 fL (80.0-100.0); MEAN PLATELET VOLUME 9.1 fL (7.4-10.4); MONOCYTES 10.8 % (2-11); PLATELET COUNT 430 10x3/uL (130-400); RBC 3.56 10x6/uL (4.00-5.40); RDW 13.3 % (11.5-14.5); WBC 7.7 10x3/uL (4.8-10.8)
[2018-06-19 03:23] LABS: BILIRUBIN - TOTAL 0.24 mg/dL (0.2-1.3); CALCIUM 9.1 mg/dL (8.5-10.1); CARBON DIOXIDE 24.7 mmol/L (21.0-32.0); CREATININE - SERUM 1.8 mg/dL (0.6-1.3); POTASSIUM - SERUM 3.7 mmol/L (3.5-5.1); PROTEIN - SERUM 7.6 g/dL (6.4-8.2); TROPONIN-I 0.104 ng/mL (0.000-0.060)
[2018-06-19 09:50] LABS: BASOPHILS 0.7 % (0-2); EOSINOPHILS 7.6 % (0-7); HEMATOCRIT 33.4 % (36.0-48.0); HEMOGLOBIN 10.8 g/dL (12-16); IMMATURE GRANULOCYTES 0.1 % (0-5); LYMPHOCYTES 14.9 % (15-50); MCH 29.3 pg (26.0-34.0); MCHC 32.3 g/dL (31.0-37.0); MCV 90.5 fL (80.0-100.0); MEAN PLATELET VOLUME 9.5 fL (7.4-10.4); MONOCYTES 7.7 % (2-11); PLATELET COUNT 463 10x3/uL (130-400); RBC 3.69 10x6/uL (4.00-5.40); RDW 13.6 % (11.5-14.5); WBC 7.1 10x3/uL (4.8-10.8)
[2018-06-19 09:55] LABS: CKMB 1.4 U/L (0.0-3.6); CREATINE KINASE 38 UL (21-215)
[2018-06-19 09:58] LABS: TROPONIN-I 0.097 ng/mL (0.000-0.060)
[2018-06-19 10:02] LABS: ANION GAP 15.3 mmol/L (8-16); CALCIUM 9.5 mg/dL (8.5-10.1); CARBON DIOXIDE 25.2 mmol/L (21.0-32.0); CREATININE - SERUM 1.9 mg/dL (0.6-1.3); POTASSIUM - SERUM 3.5 mmol/L (3.5-5.1)
[2018-06-19 16:11] LABS: CKMB 1.5 U/L (0.0-3.6); CREATINE KINASE 37 UL (21-215)
[2018-06-19 16:23] LABS: TROPONIN-I 0.175 ng/mL (0.000-0.060)
[2018-06-20] VITALS: BP 129/83
[2018-06-20 04:00] VITALS: BP 134/80
[2018-06-20 08:02] VITALS: BP 144/97
[2018-06-20 09:32] LABS: ANION GAP 14.7 mmol/L (8-16); CALCIUM 8.6 mg/dL (8.5-10.1); CARBON DIOXIDE 24.6 mmol/L (21.0-32.0); CREATININE - SERUM 1.7 mg/dL (0.6-1.3); POTASSIUM - SERUM 3.3 mmol/L (3.5-5.1)
[2018-06-20 11:45] VITALS: BP 137/71
== END 2018-06-20 13:37 | disposition home or self-care (01) ==
LOC: D.ER 19:41 → D.CLR 22:10 → D.EDHOLD 22:10 → OBSVTIME 22:10 → D.EDHOLD 22:10 → D.M2 22:10 → D.CLR 06-19 16:23 → D.M2 06-19 16:53
PROVIDERS: Family Medicine; Internal Medicine Interventional Cardiology
DX: I71.2 Thoracic aortic aneurysm, without rupture (principal); I25.10 Atherosclerotic heart disease of native coronary artery without angina pectoris; Z95.5 Presence of coronary angioplasty implant and graft; J44.9 Chronic obstructive pulmonary disease, unspecified; E11.9 Type 2 diabetes mellitus without complications; E78.5 Hyperlipidemia, unspecified; I10 Essential (primary) hypertension; F41.8 Other specified anxiety disorders

== ENCOUNTER 2018-06-26 10:00 | Emergency (ER) | payer MEDICARE ==
[~2018-06-26] VITALS: Ht 149.9 cm; Wt 55.3 kg
[2018-06-26 10:03] VITALS: BP 163/102; Ht 149.9 cm; Wt 55.3 kg
[2018-06-26] MEDS ORDERED: TORADOL10 MG PO (10:41)
== END 2018-06-26 11:12 | disposition home or self-care (01) ==
LOC: D.ER 10:00
DX: S50.12XA Contusion of left forearm, initial encounter (principal); W18.31XA Fall on same level due to stepping on an object, initial encounter; Y93.89 Activity, other specified; Y92.019 Unspecified place in single-family (private) house as the place of occurrence of the external cause; E11.9 Type 2 diabetes mellitus without complications; I10 Essential (primary) hypertension; F17.200 Nicotine dependence, unspecified, uncomplicated